=== PATIENT | male | born 1960 | race Caucasian/White ===

== ENCOUNTER 2020-10-10 14:15 | Emergency (ER) | payer SELFPAY ==
[~2020-10-10] VITALS: Ht 177.8 cm; Wt 87.5 kg
[~2020-10-10 14:15] MED LIST: CETI10CA PO
[2020-10-10 14:18] VITALS: BP 147/93
--- NOTE | 2020-10-10 14:26 | NUR ---
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 PT WANTS A RAPID RESULT. PT LEFT. BARREL LINER AWARE.
== END 2020-10-10 14:28 | disposition home or self-care (01) ==
LOC: ED 14:20
DX: J02.9 Acute pharyngitis, unspecified (principal); Z53.21 Procedure and treatment not carried out due to patient leaving prior to being seen by health care provider

== ENCOUNTER 2021-04-13 12:54 | Emergency (ER) | payer BC, OTHER ==
[~2021-04-13] VITALS: Ht 177.8 cm; Wt 89.6 kg
--- NOTE | 2021-04-13 14:33 | NUR ---
PUPPY SITTER: PT AMBULATORY TO ROOM FROM LOBBY.
[2021-04-13] MEDS ORDERED: FAMOTIDINE 20 MG TABLET ONE (15:29)
[2021-04-13] MEDS ORDERED: MAALOX/HYOSCYAMINE/LIDOCAINE 45 ML BTL PO ONE (15:30)
[2021-04-13] MEDS ORDERED: FAMOTIDINE 20 MG TABLET PO ONE (15:30)
[2021-04-13 15:46] VITALS: BP 146/92
--- NOTE | 2021-04-13 15:47 | NUR ---
PT REC'VD DISCHARGE INSTRUCTIONS AND EDUCATION. PT HAD NO FURTHER QUESTIONS. PT AMBULATED TO DC AREA, STEADY GAIT.
== END 2021-04-13 15:49 | disposition home or self-care (01) ==
LOC: ED 14:38
DX: K21.9 Gastro-esophageal reflux disease without esophagitis (principal); R07.89 Other chest pain
CPT/HCPCS: 71046; 93005; 99283